=== PATIENT | male | born 1985 | race Caucasian/White ===

== ENCOUNTER 2019-12-16 16:42 | Emergency (ER) | payer OTHER ==
[~2019-12-16] VITALS: Ht 175.3 cm; Wt 86.0 kg
[2019-12-16] MEDS ORDERED: KETOROLAC 30MG/ML VIAL IV ONE (18:15)
[2019-12-16] MEDS ORDERED: CLINDAMYCIN 900 MG in DEXTROSE 5% WATER 50 ML IV ONE (18:15)
[2019-12-16 20:35] VITALS: BP 127/63
== END 2019-12-16 20:38 | disposition home or self-care (01) ==
LOC: ER 16:42
DX: L03.115 Cellulitis of right lower limb (principal)
CPT/HCPCS: 96365; 96375; 99284; J1885; J3490; J7060